=== PATIENT | male | born 2000 | race Caucasian/White ===

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

== ENCOUNTER 2018-05-03 10:13 | Emergency (ER) | END 2018-05-03 13:14 | disposition home or self-care (01) ==

== ENCOUNTER 2018-11-21 08:44 | Emergency (ER) | payer OTHER ==
[~2018-11-21] VITALS: Wt 122.0 kg
[~2018-11-21 08:44] MED LIST changes: +ACET325T33 PO; +AMOX1TAB10 PO; +CEPH-443 PO; +IBUP800T48 PO
[2018-11-21 08:46] VITALS: BP 122/61; PULSE 75; RESP 18
[2018-11-21] MEDS ORDERED: CEPH-443 PO (09:15)
--- NOTE | 2018-11-21 09:21 | ERD ---
ER Documentation Chief Complaint Chief Complaint INGROWN TOE NAIL HPI Patient is a 18-year-old male who presents the ER for concerns of left great toe pain. Patient states symptoms started 3 days ago. He states he removed a part of his nail which did help with the symptoms however he still has some pain and redness surrounding the nail bed. She has no fevers or chills. Patient has no pain up his leg. Patient is able to walk. ROS All systems reviewed and are negative except as per history of present illness. Medications Home Meds Active Scripts Cephalexin* (Keflex*) 500 Mg Capsule, 500 MG PO TID for 7 Days, CAP Prov:CARLOS JOHNSON PA-C 11/21/18 Ibuprofen* (Motrin*) 600 Mg Tab, 600 MG PO Q8, #15 TAB Prov:ALVINO SAINZ MD 05/03/18 Cephalexin* (Keflex*) 500 Mg Capsule, 500 MG PO BID for 5 Days, #10 CAP Prov:ALVINO SAINZ MD 05/03/18 Ibuprofen* (Motrin*) 800 Mg Tab, 800 MG PO Q6, #30 TAB Prov:SHOSHANA PALOMO PA-C 06/28/17 Acetaminophen* (Tylenol*) 325 Mg Tablet, 2 TAB PO Q6 PRN for PAIN AND OR ELEVATED TEMP, #20 TAB Prov:SHOSHANA PALOMO PA-C 06/28/17 Amoxicillin/Potassium Clav (Amox-Clav 875-125 mg Tablet) 875-125 mg Tab, 1 TAB PO BID for 7 Days, #14 TAB Prov:SHOSHANA PALOMO PA-C 06/28/17 Doxycycline Hyclate* (Doxycycline Hyclate*) 100 Mg Tablet.dr, 100 MG PO BID for 7 Days, TAB Prov:CLEMENT GIRALDO MD 05/19/17 Ibuprofen* (Motrin*) 600 Mg Tab, 600 MG PO Q6, #15 TAB Prov:CLEMENT GIRALDO MD 05/19/17 Ondansetron (Ondansetron Odt) 4 Mg Tab.rapdis, 4 MG PO Q8 PRN for NAUSEA AND/OR VOMITING, #30 TAB Prov:ANTHONY VASQUEZ NP 11/25/16 Acetamin/Butalbital/Caffeine* (Fioricet*) [id number] Tab, 1 TAB PO Q6H PRN for PAIN, #30 TAB Prov:ANTHONY VASQUEZ AUTOMATIC BEADING LATHE OPERATOR 11/25/16 Amoxicillin* (Amoxicillin*) 500 Mg Cap, 500 MG PO TID for 10 Days, CAP Prov:VLADISLAV BRADY-C 11/13/16 Acetaminophen* (Tylophen*) 500 Mg Capsule, 1 CAP PO Q6H PRN for PAIN AND OR ELEVATED TEMP, #30 CAP Prov:VLADISLAV BRADYC 11/13/16 Ibuprofen* (Motrin*) 600 Mg Tab, 600 MG PO Q6, #30 TAB Prov:VLADISLAV BRADYC 11/13/16 Ibuprofen* (Motrin*) 600 Mg Tab, 600 MG PO Q6H PRN for PAIN AND OR ELEVATED TE MP, #30 TAB Prov:TONI GO NP 02/19/16 Ibuprofen* (Motrin*) 600 Mg Tab, 600 MG PO Q6, #30 TAB Prov:SHOSHANA PALOMO PA-C 10/31/15 Reported Medications [No Meds] No Conflict Check, 0 Refills 05/26/10 Allergies Allergies: Coded Allergies: No Known Allergies (Verified Allergy, Mild, 06/28/17) PMhx/Soc History of Surgery: No Anesthesia Reaction: No Hx Neurological Disorder: No Hx Respiratory Disorders: No Hx Cardiac Disorders: No Hx Psychiatric Problems: No Hx Miscellaneous Medical Probl: No Hx Alcohol Use: No Hx Substance Use: No Hx Tobacco Use: No FmHx Family History: No diabetes Physical Exam Vitals Vital Signs Date Temp Pulse Resp B/P (MAP) Pulse Ox O2 O2 Flow FiO2 Time Delivery Rate 11/21/18 98.0 75 18 122/61 99 08:46 (81) Physical Exam GENERAL: Well-developed, well-nourished male. Appears in no acute distress. HEAD: Normocephalic, atraumatic. EYES: Pupils are equally reactive bilaterally. EOMs grossly intact. No conjunctival erythema. NECK: Supple. No meningismus. Normal range of motion of the neck. LUNG: Clear to auscultation bilaterally. No rhonchi, wheezing, rales or coarse breath sounds. HEART: Regular rate and rhythm. No murmurs, rubs or gallops. EXTREMITIES: Equal pulses bilaterally. No peripheral clubbing, cyanosis or edema. No unilateral leg swelling. NEUROLOGIC: Alert and oriented. Moving all four extremities without any dif ficulty. Normal speech. Steady gait. SKIN: L great toe: Distal lateral nail aspect already removed. No active bleeding or drainage. Paronychia noted to the lateral aspect of the nail plate. Skin is erythematous and slightly swollen. No warmth or drainage. No streaking. Procedures/MDM MEDICAL DECISION MAKING: This is a 18-year-old male who presents to the ER for concerns of left great toe nail pain. Patient did remove a portion of his nail as he thought it was ingrown. Patient presents with redness and swelling surrounding the nail plate.. Vital signs were reviewed. Patient was afebrile. At this time there is no indication for further nail incision. Patient has a paronychia and was advised he will need to start antibiotics. Epson salt soaks were advised. Patient encouraged to follow-up hotel or motel receptionist. Referral information provided. Low suspicion for felon or osteomyelitis. Patient was nontoxic, [id number] prior to discharge. PRESCRIPTIONS: Keflex DISCHARGE: At this time, patient is stable for discharge and outpatient management. RICE therapy and ROM exercises were advised to avoid stiffness. I have instructed the patient to follow-up with his/her primary care physician in 1-2 days. I have discussed with the patient the possibility of needing to see an photo lab specialist for further workup and imaging if the pain persists. I have instructed the patient to promptly return to the ER for any new or worsening symptoms including increased pain, swelling, redness, warmth or fever. The patient and/or family expressed understanding of and agreement with this plan. All questions were answered. Home care instructions were provided. Disclaimer: Inadvertent spelling and grammatical errors are likely due to EHR/dictation software use and do not reflect on the overall quality of patient care. Also, please note that the electronic time recorded on this note does not necessarily reflect the actual time of the patient encounter. Departure Diagnosis: Primary Impression: Paronychia Condition: Fair Patient Instructions: Paronychia Referrals: ASLANIAN,MELINEH AYVAZIAN,HERMOZ B DPM BELAKASH TREJO DPM, ERIC H. D.P.M. HAGOPJANIAN, ARMEN DPM KALHOR, NASIM KOSARI, BABAK DPM MANDYAM, VIJAY MEJIA, OTTONIEL A MILLER, RONALD DPM ROGERS, LEE C. DPM SARTE, RICHARD J. DPM SELZER, AARON T Additional Instructions: Call your primary care doctor TOMORROW for an appointment during the next 1-2 days.See the doctor sooner or return here if your condition worsens before your appointment time. Follow up with hotel or motel receptionist. Sina mosquera advised. CARLOS JOHNSON PA-C Nov 21, 2018 09:21
== END 2018-11-21 09:35 | disposition home or self-care (01) ==
LOC: FTE 08:44
DX: L03.032 Cellulitis of left toe (principal)
CPT/HCPCS: 99283

== ENCOUNTER 2019-02-05 09:17 | Emergency (ER) | payer OTHER ==
[~2019-02-05] VITALS: Ht 185.4 cm; Wt 120.0 kg
[2019-02-05 09:24] VITALS: Ht 185.4 cm; Wt 120.0 kg
[2019-02-05] MEDS ORDERED: SOD CHLORIDE 0.9% 1,000 ML IV STA (09:42)
[2019-02-05] MEDS ORDERED: KETOROLAC 15 MG INJ IV STA (09:42)
--- NOTE | 2019-02-05 09:50 | ERD ---
ER Documentation Chief Complaint Chief Complaint CP ONSET LAST NIGHT, HAS FLU WITH COUGH HPI 18-year-old male no significant past medical history presents to the emergency room planing of chest pain. The patient describes sharp, nonpleuritic chest pain that occurs with a heartbeat that started last night. He denies any nausea or vomiting. The patient had a recent viral upper respiratory tract infection with rhinorrhea, no significant cough. Patient denies any dyspnea on exertion, calf swelling, recent immobilization. No syncope. No family history of sudden . ROS All systems reviewed and are negative except as per history of present illness. Medications Home Meds Discontinued Reported Medications [No Meds] No Conflict Check, 0 Refills 05/26/10 Discontinued Scripts Cephalexin* (Keflex*) 500 Mg Capsule, 500 MG PO TID for 7 Days, CAP Prov:CARLOS JOHNSON PA-C 11/21/18 Ibuprofen* (Motrin*) 600 Mg Tab, 600 MG PO Q8, #15 TAB Prov:ALVINO SAINZ MD 05/03/18 Cephalexin* (Keflex*) 500 Mg Capsule, 500 MG PO BID for 5 Days, #10 CAP Prov:ALVINO SAINZ MD 05/03/18 Ibuprofen* (Motrin*) 800 Mg Tab, 800 MG PO Q6, #30 TAB Prov:SHOSHANA PALOMO PA-C 06/28/17 Acetaminophen* (Tylenol*) 325 Mg Tablet, 2 TAB PO Q6 PRN for PAIN AND OR E LEVATED TEMP, #20 TAB Prov:SHOSHANA PALOMO PA-C 06/28/17 Amoxicillin/Potassium Clav (Amox-Clav 875-125 mg Tablet) 875-125 mg Tab, 1 TAB PO BID for 7 Days, #14 TAB Prov:SHOSHANA PALOMO PA-C 06/28/17 Doxycycline Hyclate* (Doxycycline Hyclate*) 100 Mg Tablet.dr, 100 MG PO BID for 7 Days, TAB Prov:CLEMENT GIRALDO MD 05/19/17 Ibuprofen* (Motrin*) 600 Mg Tab, 600 MG PO Q6, #15 TAB Prov:CLEMENT GIRALDO MD 05/19/17 Ondansetron (Ondansetron Odt) 4 Mg Tab.rapdis, 4 MG PO Q8 PRN for NAUSEA AND/OR VOMITING, #30 TAB Prov:ANTHONY VASQUEZ NP 11/25/16 Acetamin/Butalbital/Caffeine* (Fioricet*) [id number] Tab, 1 TAB PO Q6H PRN for PAIN, #30 TAB Prov:ANTHONY VASQUEZ BAR BACK 11/25/16 Amoxicillin* (Amoxicillin*) 500 Mg Cap, 500 MG PO TID for 10 Days, CAP Prov:VLADISLAV BRADY PA-C 11/13/16 Acetaminophen* (Tylophen*) 500 Mg Capsule, 1 CAP PO Q6H PRN for PAIN AND OR ELEVATED TEMP, #30 CAP Prov:VLADISLAV BRADY PA-C 11/13/16 Ibuprofen* (Motrin*) 600 Mg Tab, 600 MG PO Q6, #30 TAB Prov:VLADISLAV BRADY PA-C 11/13/16 Ibuprofen* (Motrin*) 600 Mg Tab, 600 MG PO Q6H PRN for PAIN AND OR ELEVATED TEMP, #30 TAB Prov:TONI GO NP 02/19/16 Ibuprofen* (Motrin*) 600 Mg Tab, 600 MG PO Q6, #30 TAB Prov:SHOSHANA PALOMO PA-C 10/31/15 Allergies Allergies: Coded Allergies: No Known Allergies (Verified Allergy, Mild, 02/05/19) PMhx/Soc History of Surgery: No Anesthesia Reaction: No Hx Neurological Disorder: No Hx Respiratory Disorders: No Hx Cardiac Disorders: No Hx Psychiatric Problems: No Hx Miscellaneous Medical Probl: No Hx Alcohol Use: No Hx Substance Use: No Hx Tobacco Use: No Smoking Status: Never smoker FmHx Family History: No diabetes Physical Exam Vitals Vital Signs Date Temp Pulse Resp B/P (MAP) Pulse Ox O2 O2 Flow FiO2 Time Delivery Rate 02/05/19 88 20 128/75 98 Room Air 11:13 (92) 02/05/19 98.1 86 18 140/77 99 09:24 (98) Physical Exam General: Well developed, well nourished, no acute distress Head: Normocephalic, atraumatic. Eyes: Pupils equally reactive, EOM intact ENT: Moist mucous membranes Neck: Supple, no lymphadenopathy Respiratory: Lungs clear bilaterally, no distress Cardiovascular: RRR, no murmurs, rubs, or gallops Abdominal: Soft, non-tender, non-distended, no peritoneal signs : Deferred MSK: No edema, no unilateral swelling, 5/5 strength Neurologic: Alert and oriented, moving all extremities, normal speech, no focal weakness, no cerebellar signs Skin: No rash Psych: Normal mood Result Diagram: 02/05/1994402/05/1945 Results 24 hrs Laboratory Tests Test 02/05/19 09:45 White Blood Count 8.5 10^3/ul Red Blood Count 5.81 10^6/ul Hemoglobin 14.5 g/dl Hematocrit 45.5 % Mean Corpuscular Volume 78.3 fl Mean Corpuscular Hemoglobin 25.0 pg Mean Corpuscular Hemoglobin Concent 31.9 g/dl Red Cell Distribution Width 15.8 % Platelet Count 332 10^3/UL Mean Platelet Volume 9.1 fl Immature Granulocytes % 0.400 % Neutrophils % 70.3 % Lymphocytes % 18.4 % Monocytes % 7.8 % Eosinophils % 2.6 % Basophils % 0.5 % Nucleated Red Blood Cells % 0.0 /100WBC Immature Granulocytes # 0.030 10^3/ul Neutrophils # 6.0 10^3/ul Lymphocytes # 1.6 10^3/ul Monocytes # 0.7 10^3/ul Eosinophils # 0.2 10^3/ul Basophils # 0.0 10^3/ul Nucleated Red Blood Cells # 0.0 10^3/ul Sodium Level 143 mmol/L Potassium Level 4.5 mmol/L Chloride Level 106 mmol/L Carbon Dioxide Level 28 mmol/L Anion Gap 9 Blood Urea Nitrogen 21 mg/dl Creatinine 1.05 mg/dl Est Glomerular Filtrat Rate mL/min > 60 mL/min Glucose Level 112 mg/dl Calcium Level 9.5 mg/dl Troponin I 2.130 ng/ml Current Medications Medications Dose Sig/Luz Start Time Status Last (Trade) Ordered Route PRN Stop Time Admin Dose Reason Admin Sodium 1,000 ml @ Q1H STAT 02/05/19 DC 02/05/19 Chloride 1,000 mls/hr IV 09:42 02/05/19 09:57 10:41 Ketorolac 15 mg ONCE STAT 02/05/19 DC 02/05/19 Tromethamine IV 09:42 02/05/19 09:57 (Toradol) 09:44 Aspirin 162 mg ONCE ONCE 02/05/19 02/05/19 (Aspirin) PO 11:30 02/05/19 11:09 11:31 Procedures/MDM EKG, MONITORS, & DIAGNOSTIC IMAGING: EKG: I reviewed and interpreted a 12-lead EKG. Rhythm: Normal sinus rhythm ST Changes: Diffuse ST segment elevation with CA depression T waves: No contiguous T wave inversions Impression: EKG changes consistent with acute pericarditis Repeat EKG: EKG: I reviewed and interpreted a 12-lead EKG. Rhythm: Normal sinus rhythm ST Changes: Diffuse ST segment elevation with CA depression T waves: No contiguous T wave inversions Impression: EKG changes consistent with acute pericarditis Chest x-ray: I reviewed and interpreted a 1 view of the chest Mediastinum: No enlargement Cardiac silhouette: No cardiomegaly Airspace: Clear lung bucio bilaterally without evidence of pneumothorax Bones: No evidence of fracture PROCEDURES: [None] LAB INTERPRETATION: * Trop elevation MEDICAL DECISION MAKING: The patient's history, physical exam and clinical presentation is concerning for possible acute pericarditis. While the patient does not have positional symptoms he has preceding viral upper respiratory tract infection with EKG changes consistent with CA depression and diffuse ST segment elevation without reciprocal changes. This is very consistent with acute likely viral per icarditis without complications. No signs or symptoms concerning for CHF or pulmonary embolism. While the patient's EKG shows a computer read of "acute [place] "I do not believe the changes are consistent with ST elevation myocardial infarction. No signs or symptoms concerning for dissection. I discussed the case with our commercial finance analyst, Dr. Piedra. We reviewed the patient's EKG and he agrees that this is likely consistent with acute pericarditis and does not meet indication for Collector activation. Based on the patient's clinical exam and history and risk factors, I have a much lower clinical concern for pulmonary embolism, acute aortic dissection, pneumothorax, pneumonia, cardiac tamponade ER COURSE: * Patient was treated with nonsteroidal anti-inflammatory and IV fluids. * The patient's pain is much improved at this point. Repeat EKG is unchanged. Patient is now chest pain-free. * Troponin came back at 2 * I discussed again the case with Dr. Piedra. He is not the admitting ca rdiologist. He recommends speaking to the on-call commercial finance analyst who is Dr. Gibson. I spoke to Dr. Gibson around 11 AM. He states that he is not an [employer] advanced operator maintainer and we do not have an active Collector. The safest place for this patient would be at a Collector facility. He recommends t ransfer to higher level of care. * Based on contract I was able to speak to Dr. Galdamez at [facility]. He is reviewed the case with me and recommends ER to ER transfer and will assess in the emergency department. I spoke to the charge nurse at [facility] who will notify either Dr. Lima or Dr. Villalobos. * Again I do not believe the patient's symptoms, EKG and presentation are consistent with acute coronary syndrome or plaque rupture. This is more consistent with likely viral myopericarditis. This can be appropriately treated with nonsteroidal anti-inflammatories. Although empiric aspirin was provided in the emergency room setting. He is chest pain-free. I do not believe emergent Collector activation is necessary. The patient is safe for transfer via ALS. Patient was informed, family updated. CONSULTATION: Telephone Appointment Clerk as documented above DISPOSITION PLAN: Transfer to [facility] for higher level of care as documented above. Critical Care Note: Total time: 35 minutes Indication/Organ System Threat: Acute myopericarditis I spent the above amount of critical care time with the patient, not including billable procedures. This included chart review, consultations, repeat bedside evaluations, and titration of appropriate medications to prevent cardiopulmonary or respiratory collapse. Departure Diagnosis: Primary Impression: Acute myopericarditis Condition: KAYE Sales MD Feb 05, 2019 09:50
[2019-02-05] MEDS ORDERED: ASPIRIN 81 MG TAB PO ONE (11:30)
[2019-02-05 13:01] VITALS: BP 124/79; PULSE 81; RESP 20
== END 2019-02-05 14:38 | disposition home or self-care (01) ==
LOC: E/R 09:17
DX: I30.9 Acute pericarditis, unspecified (principal)
CPT/HCPCS: 36415; 71045; 80048; 84484; 85025; 93005; 96374; J1885; J7030; Z7502; Z7610